=== PATIENT | male | born 1985 | race Caucasian/White ===

== ENCOUNTER 2016-08-19 19:51 | Emergency (ER) | payer OTHER ==
[~2016-08-19] VITALS: Ht 198.1 cm; Wt 134.0 kg
[2016-08-19 20:47] VITALS: Ht 198.1 cm; Wt 134.0 kg
[2016-08-19] MEDS ORDERED: BEN25 PO (21:20)
[2016-08-19] MEDS ORDERED: CLOT30CR24 TOP (21:20)
--- NOTE | 2016-08-19 21:35 | ERD ---
ER Documentation Chief Complaint Date/Time DATE: 08/19/16 TIME: 21:23 Chief Complaint Rash on the left arm HPI 30-year-old male presents to ER with chief complaint of rash over left elbow. States that he noticed it yesterday. He denies fever, discharge, bleeding, swelling, and trauma. He has not tried any OTC medications for relief of his rash. Denies use of any new household products including lotions, creams, along detergent, and soap. He is unaware of any allergies. Has not tried any new medications or foods. States the area is pruritic. ROS All systems reviewed and are negative except as per history of present illness. Medications Home Meds Active Scripts Diphenhydramine Hcl* (Benadryl*) 25 Mg Cap, 25 MG PO Q6, #30 CAP Prov:Fiordaliza Beltre PA-C 08/19/16 Clotrimazole* (Clotrimazole* AF) 1% - 30 Gm Cream.gm., 1 APPLIC TOP BID for 7 Days, TUB Prov:Fiordaliza Beltre PA-C 08/19/16 Allergies Allergies: Coded Allergies: No Known Allergy (Unverified , 05/16/14) Physical Exam Vitals Vital Signs Date Time Temp Pulse Resp B/P Pulse Ox O2 Delivery O2 Flow Rate FiO2 08/19/16 20:47 98.1 83 24 144/83 99 Physical Exam GENERAL: Non-toxic. No apparent signs of distress. HEENT: Atraumatic. Bilateral eyes are PERRL EOM intact. Normal conjunctiva, no injection. No eyelid or lower eyelid swelling noted. Ears: Normal tympanic membrane, no erythema or bulging. No ear canal swelling. No ear discharge. Nose : no nasal discharge. Throat: Oropharynx normal. Tongue pink and moist, no tongue swelling. No lip swelling. No tonsillar swelling or tonsillar exudates. No lymphadenopathy. No lesions over the buccal mucosa. LUNGS: Clear to auscultation. No accessory muscle use. No wheezing, no crackles. No signs or symptoms of respiratory distress. HEART: Regular rate and rhythm. No murmurs, clicks, rubs or gallops. EXTREMITIES: No peripheral cyanosis or edema. No focal pain or notable trauma. Full range of motion. Good capillary refill. SKIN: 3 cm annular area of surrounding erythematous papular lesions with central clearing. No diffuse erythema or edema. Area is cool to touch. Good skin turgor. Procedures/MDM Patient presents to ER with chief complaint of rash that he noticed yesterday. On examination the area is annular with papular erythematous lesion over the outside and clearing over the center. Patient states the area is pruritic. He denies any other similar lesions over his body. He denies fever, discharge, bleeding, and use of any new products. Differential diagnosis eczema versus tinea corporis. I explained to the patient that rash is most consistent with tinea corporis. I advised the area dry and out of contact with other areas of the body has been having seizures. I advised the use of tight clothing that may trap moisture. I prescribed Lotrimin 1% topical cream as well as Benadryl 25 mg for pruritus. Sedating effects of Benadryl worked the best, patient advised not take medication while driving or operating heavy machinery. At this time I low suspicion for anaphylaxis, cellulitis, SJS, erythema multiforme, abscess, and ulcer/gangrene. Patient is stable for discharge and outpatient management. Advised to follow-up with PCP in one to 2 days. Departure Diagnosis: Primary Impression: Rash Additional Impression: Tinea corporis Condition: Good Patient Instructions: Self-Care for Skin Rashes, Tinea Corporis Additional Instructions: Call your primary care doctor TOMORROW for an appointment during the next 1-2 days.See the doctor sooner or return here if your condition worsens before your appointment time. Fiordaliza Beltre PA-C Aug 19, 2016 21:35
== END 2016-08-19 21:23 | disposition home or self-care (01) ==
LOC: E/R 19:51
DX: R21 Rash and other nonspecific skin eruption (principal); B35.4 Tinea corporis
CPT/HCPCS: 99283

== ENCOUNTER 2016-10-16 01:09 | Emergency (ER) | payer OTHER ==
[~2016-10-16] VITALS: Ht 193 cm; Wt 138.0 kg
[~2016-10-16 01:09] MED LIST: BEN25 PO; CLOT30CR24 TOP
[2016-10-16 02:12] VITALS: Ht 193 cm; Wt 138.0 kg
--- NOTE | 2016-10-16 02:24 | ERA ---
ER Documentation Chief Complaint Date/Time DATE: 10/16/16 TIME: 02:23 Chief Complaint Anxious HPI The patient is a 31-year-old male, presenting to the ER because he is very anxious. He has been doing heroin, amphetamine, cocaine, marijuana for a week. He is homeless, denies suicidal or homicidal ideation. He has flights of ideas, talkative. He denies headache, neck pain, chest pain, abdominal pain, vomiting, dysuria, diarrhea. He smokes and drinks Past medical history: Schizoaffective disorder, alcohol abuse Past surgical history: Bariatric surgery ROS All systems reviewed and are negative except as per history of present illness. Medications Home Meds Active Scripts Diphenhydramine Hcl* (Benadryl*) 25 Mg Cap, 25 MG PO Q6, #30 CAP Prov:Fiordaliza Beltre PA-C 08/19/16 Clotrimazole* (Clotrimazole* AF) 1% - 30 Gm Cream.gm., 1 APPLIC TOP BID for 7 Days, TUB Prov:Fiordaliza Beltre PA-C 08/19/16 Allergies Allergies: Coded Allergies: No Known Allergy (Unverified , 05/16/14) Physical Exam Vitals Vital Signs Date Time Temp Pulse Resp B/P Pulse Ox O2 Delivery O2 Flow Rate FiO2 10/16/16 03:31 80 19 141/93 99 Room Air 10/16/16 02:12 98.4 105 24 135/85 95 Physical Exam Const: No acute distress. Head: Atraumatic. Eyes: Normal Conjunctiva. ENT: Normal External Ears, Nose and Mouth. Neck: Full range of motion. No meningismus. Resp: Clear to auscultation bilaterally. Cardio: Regular rate and rhythm, no murmurs. Abd: Soft, non distended, normal bowel sounds, non tender. Skin: No petechiae or rashes. Back: No midline or flank tenderness. Ext: No cyanosis, or edema. Neur: Awake and alert. No focal deficit Psych: Anxious Result Diagram: 10/16/1631110/16/16311 Results 24 hrs Laboratory Tests Test 10/16/16 03:12 White Blood Count 8.610^3/ul Red Blood Count 5.2810^6/ul Hemoglobin 15.5g/dl Hematocrit 46.6% Mean Corpuscular Volume 88.3fl Mean Corpuscular Hemoglobin 29.4pg Mean Corpuscular Hemoglobin Concent 33.3g/dl Red Cell Distribution Width 12.8% Platelet Count 69593^3/UL Mean Platelet Volume 9.2fl Neutrophils % 71.8% Lymphocytes % 18.3% Monocytes % 8.2% Eosinophils % 0.9% Basophils % 0.4% Nucleated Red Blood Cells % 0.0/100WBC Neutrophils # 6.210^3/ul Lymphocytes # 1.610^3/ul Monocytes # 0.710^3/ul Eosinophils # 0.110^3/ul Basophils # 0.010^3/ul Nucleated Red Blood Cells # 0.010^3/ul Urine Color LT. YELLOW Urine Clarity CLEAR Urine pH 6.0 Urine Specific Dat[place] 1.010 Urine Ketones NEGATIVE Urine Nitrite NEGATIVE Urine Bilirubin NEGATIVE Urine Urobilinogen 0.2 E.U./dL Urine Leukocyte Esterase NEGATIVE Urine Microscopic RBC 0-2/HPF Urine Microscopic WBC 0-2/HPF Urine Squamous Epithelial Cells OCCASIONAL Urine Hemoglobin TRACE Urine Glucose NEGATIVE% Urine Total Protein NEGATIVE Sodium Level 142mmol/L Potassium Level 4.3mmol/L Chloride Level 100mmol/L Carbon Dioxide Level 28mmol/L Anion Gap 18 Blood Urea Nitrogen 12mg/dl Creatinine 0.97mg/dl Glucose Level 85mg/dl Calcium Level 9.5mg/dl Total Bilirubin 0.5mg/dl Direct Bilirubin 0.00mg/dl Indirect Bilirubin 0.5mg/dl Aspartate Amino Transf (AST/SGOT) 31IU/L Alanine Aminotransferase (ALT/SGPT) 50IU/L Alkaline Phosphatase 71IU/L Total Protein 8.1g/dl Albumin 4.9g/dl Globulin 3.20g/dl Albumin/Globulin Ratio 1.53 Salicylates Level < 1.0mg/dl Urine Opiates Screen Negative Acetaminophen Level < 10.0ug/ml Urine Barbiturates Negative Urine Amphetamines Screen Negative Urine Benzodiazepines Screen Negative Urine Cocaine Screen Negative Urine Cannabinoids Positive Ethyl Alcohol Level < 10.0mg/dl Procedures/MDM MEDICAL MAKING DECISION: The patient is a 31-year-old male, presenting to the ER because of acute psychosis. The differential diagnoses considered include but are not limited to decompensated psychiatric illness, psychosis, drug- induced psychosis, substance abuse, anxiety attack, panic attack Departure Diagnosis: Primary Impression: Psychosis Additional Impression: Substance abuse Condition: Stable Comments He is awaiting for telepsychiatrist evaluation The patient's blood pressure was elevated (>120/80) but appears stable without evidence of hypertension emergency or urgency. The patient was counseled about the risks of hypertension and urged to pursue outpatient monitoring and therapy within a week after discharge with their primary care physician. SHREE MYERS MD Oct 16, 2016 02:23
[2016-10-16 03:31] VITALS: BP 141/93; PULSE 80; RESP 19
[2016-10-16 03:38] LABS: ADD SCAN DIFF NO
[2016-10-16 03:41] LABS: ADD UMIC YES; URINE BILIRUBIN (Dip) NEGATIVE (NEGATIVE); URINE BLOOD (Dip) TRACE (NEGATIVE); URINE COLOR LT. YELLOW (YELLOW); URINE GLUCOSE (Dip) NEGATIVE (NEGATIVE); URINE KETONES (Dip) NEGATIVE (NEGATIVE); URINE LEUKOCYTE ESTERASE (Dip) NEGATIVE (NEGATIVE); URINE NITRITE (Dip) NEGATIVE (NEGATIVE); URINE TOTAL PROTEIN (Dip) NEGATIVE (NEGATIVE); URINE UROBILINOGEN (Dip) 0.2 E.U./dL (0.1-1.0)
[2016-10-16 03:42] LABS: BASOPHILS % 0.4 % (0.0-2.0); EOSINOPHILS # 0.1 10^3/ul (0.0-0.5); EOSINOPHILS % 0.9 % (0.0-7.0); HEMATOCRIT 46.6 % (42.0-52.0); HEMOGLOBIN 15.5 g/dl (14.0-18.0); LYMPHOCYTES # 1.6 10^3/ul (0.8-2.9); LYMPHOCYTES % 18.3 % (15.0-51.0); MEAN CORPUSCULAR HEMOGLOBIN 29.4 pg (29.0-33.0); MEAN CORPUSCULAR HGB CONC 33.3 g/dl (32.0-37.0); MEAN CORPUSCULAR VOLUME 88.3 fl (82.0-101.0); MEAN PLATELET VOLUME 9.2 fl (7.4-10.4); MONOCYTE # 0.7 10^3/ul (0.3-0.9); MONOCYTES % 8.2 % (0.0-11.0); NEUTROPHIL # 6.2 10^3/ul (1.6-7.5); NEUTROPHILS % 71.8 % (39.0-77.0); PLATELET COUNT 349 10^3/UL (140-415); RED BLOOD COUNT 5.28 10^6/ul (4.70-6.10); RED CELL DISTRIBUTION WIDTH 12.8 % (11.5-14.5); WHITE BLOOD COUNT 8.6 10^3/ul (4.8-10.8)
[2016-10-16 03:53] LABS: SQUAMOUS EPITHELIAL CELL,UR OCCASIONAL; URINE RBCS 0-2 /HPF (0)
[2016-10-16 03:56] LABS: ALBUMIN 4.9 g/dl (3.3-4.9); CHLORIDE 100 mmol/L (97-110); SODIUM 142 mmol/L (135-144)
[2016-10-16 03:57] LABS: CANNABINOIDS Positive (NEGATIVE); POTASSIUM 4.3 mmol/L (3.5-5.1)
[2016-10-16 03:58] LABS: CREATININE 0.97 mg/dl (0.61-1.24)
[2016-10-16 03:59] LABS: ALANINE AMINOTRANSFERASE 50 IU/L (13-69); ALBUMIN/GLOBULIN RATIO 1.53; ALKALINE PHOSPHATASE 71 IU/L (42-121); ANION GAP 18 (8-16); ASPARTATE AMINO TRANSFERASE 31 IU/L (15-46); BLOOD UREA NITROGEN 12 mg/dl (7-20); CALCIUM 9.5 mg/dl (8.4-10.2); CARBON DIOXIDE 28 mmol/L (21-31); GLUCOSE 85 mg/dl (70-220); TOTAL PROTEIN 8.1 g/dl (6.1-8.1)
[2016-10-16 04:03] LABS: BARBITURATES Negative (NEGATIVE); BENZODIAZEPINES Negative (NEGATIVE); COCAINE Negative (NEGATIVE); OPIATES Negative (NEGATIVE)
[2016-10-16 04:04] LABS: ACETAMINOPHEN < 10.0 ug/ml (10.0-30.0); ETHANOL < 10.0 mg/dl; SALICYLATE < 1.0 mg/dl (5.0-30.0)
[2016-10-16 04:15] LABS: BILIRUBIN,INDIRECT 0.5 mg/dl (0-1.1); BILIRUBIN,TOTAL 0.5 mg/dl (0.2-1.3)
--- NOTE | 2016-10-16 07:53 | PSY ---
Date/Time of Note Date/Time of Note DATE: 10/16/16 TIME: 07:53 Psychiatric Subjective Eval Subjective Evaluation Patient location: emergency Chief Complaint: AP, Psych issue, pt anxious, taking haldol. Held for psych issue Medical history Problems Medical Problems: (1) Psychosis Status: Acute (2) Rash Status: Acute (3) Substance abuse Status: Acute (4) Tinea corporis Status: Acute Allergies: Coded Allergies: No Known Allergy (Unverified , 05/16/14) Psychiatric Objective Eval Mental Status Examination: Laboratory Results Laboratory Tests Test 10/16/16 03:12 White Blood Count 8.610^3/ul Red Blood Count 5.2810^6/ul Hemoglobin 15.5g/dl Hematocrit 46.6% Mean Corpuscular Volume 88.3fl Mean Corpuscular Hemoglobin 29.4pg Mean Corpuscular Hemoglobin Concent 33.3g/dl Red Cell Distribution Width 12.8% Platelet Count 02419^3/UL Mean Platelet Volume 9.2fl Neutrophils % 71.8% Lymphocytes % 18.3% Monocytes % 8.2% Eosinophils % 0.9% Basophils % 0.4% Nucleated Red Blood Cells % 0.0/100WBC Neutrophils # 6.210^3/ul Lymphocytes # 1.610^3/ul Monocytes # 0.710^3/ul Eosinophils # 0.110^3/ul Basophils # 0.010^3/ul Nucleated Red Blood Cells # 0.010^3/ul Urine Color LT. YELLOW Urine Clarity CLEAR Urine pH 6.0 Urine Specific [place] 1.010 Urine Ketones NEGATIVE Urine Nitrite NEGATIVE Urine Bilirubin NEGATIVE Urine Urobilinogen 0.2 E.U./dL Urine Leukocyte Esterase NEGATIVE Urine Microscopic RBC 0-2/HPF Urine Microscopic WBC 0-2/HPF Urine Squamous Epithelial Cells OCCASIONAL Urine Hemoglobin TRACE Urine Glucose NEGATIVE% Urine Total Protein NEGATIVE Sodium Level 142mmol/L Potassium Level 4.3mmol/L Chloride Level 100mmol/L Carbon Dioxide Level 28mmol/L Anion Gap 18 Blood Urea Nitrogen 12mg/dl Creatinine 0.97mg/dl Glucose Level 85mg/dl Calcium Level 9.5mg/dl Total Bilirubin 0.5mg/dl Direct Bilirubin 0.00mg/dl Indirect Bilirubin 0.5mg/dl Aspartate Amino Transf (AST/SGOT) 31IU/L Alanine Aminotransferase (ALT/SGPT) 50IU/L Alkaline Phosphatase 71IU/L Total Protein 8.1g/dl Albumin 4.9g/dl Globulin 3.20g/dl Albumin/Globulin Ratio 1.53 Salicylates Level < 1.0mg/dl Urine Opiates Screen Negative Acetaminophen Level < 10.0ug/ml Urine Barbiturates Negative Urine Amphetamines Screen Negative Urine Benzodiazepines Screen Negative Urine Cocaine Screen Negative Urine Cannabinoids Positive Ethyl Alcohol Level < 10.0mg/dl Assessment Additional comments: IDENTIFYING INFORMATION: 31 year old Male patient who is currently at the hospital and for whom psychiatric consultation was requested. SOURCES OF INFORMATION: the medical record; the nursing staff. CHIEF COMPLAINT: unable to obtain as this evaluation was not completed. HISTORY OF PRESENT ILLNESS: MARILIN Boyer reports that the patient presented with various complaints, reporting that he needs surgery but would not disclose what type of surgery that would be or what the indication would be. Admitted to using cocaine, meth, MJ recently. According to the emergency room physician's note the patient presented to the emergency room because he is very anxious. He reported using heroin, amphetamine, cocaine, marijuana for one week. He denied having suicidal or homicidal ideation. He appeared to be quite talkative on exam and to have flights of ideas. Is not on a hold. The patient left the emergency room prior to the completion of this evaluation against medical advice. Therefore the provider was not able to complete this psychiatric interview of the patient. PAST MEDICAL HISTORY: The patient left the emergency room prior to the completion of this evaluation against medical advice. Therefore the provider was not able to initiate and complete a psychiatric interview of the patient. CURRENT MEDICATIONS: per nursing staff- Haldol IM q month ALLERGIES TO MEDICATIONS: The patient left the emergency room prior to the completion of this evaluation against medical advice. Therefore the provider was not able to complete this psychiatric interview of the patient. LABORATORY TESTS: CBC WNL, CMP WNL, UDS + MJ, no alcohol detected FAMILY HISTORY: The patient left the emergency room prior to the completion of this evaluation against medical advice. Therefore the provider was not able to initiate and complete a psychiatric interview of the patient. SOCIAL HISTORY: The patient left the emergency room prior to the completion of this evaluation against medical advice. Therefore the provider was not able to initiate and complete a psychiatric interview of the patient. REVIEW OF SYSTEMS: The patient left the emergency room prior to the completion of this evaluation against medical advice. Therefore the provider was not able to initiate and complete a psychiatric interview of the patient. MENTAL STATUS EXAMINATION: The patient left the emergency room prior to the completion of this evaluation against medical advice. Therefore the provider was not able to initiate and complete a psychiatric interview of the patient. ASSESSMENT/PLAN: The patient left the emergency room prior to the completion of this evaluation against medical advice. Therefore the provider was not able to initiate and complete a psychiatric interview of the patient. The recommendations could not be made because the current provider was never able to evaluate the patient. Will remain available if the patient returns back to the emergency room, and psychiatric consultation is requested by the emergency room physician. DIVINA FITZGERALD MD Oct 16, 2016 07:53
== END 2016-10-16 06:05 | disposition left against medical advice (07) ==
LOC: E/R 01:09
DX: F29 Unspecified psychosis not due to a substance or known physiological condition (principal); F11.10 Opioid abuse, uncomplicated; F15.10 Other stimulant abuse, uncomplicated; F14.10 Cocaine abuse, uncomplicated; F12.10 Cannabis abuse, uncomplicated
CPT/HCPCS: 36415; 80053; 80306; 80307; 81001; 81003; 85025; Z7502; 99284

== ENCOUNTER 2016-12-25 23:38 | Emergency (ER) | payer OTHER ==
[~2016-12-25] VITALS: Ht 198.1 cm; Wt 130.5 kg
[2016-12-25 23:53] VITALS: Ht 198.1 cm; Wt 130.5 kg
[2016-12-26] MEDS ORDERED: IPRATROPIUM (NEB) 0.5 MG/2.5 ML AMP NEB STA (04:32)
[2016-12-26] MEDS ORDERED: predniSONE 20 MG TAB PO STA (04:32)
[2016-12-26] MEDS ORDERED: ALBUTEROL 0.5% (NEB) 2.5 MG/0.5 ML AMP NEB STA (04:32)
[2016-12-26] MEDS ORDERED: GUAIFENESIN/DM 5ML CUP PO ONE (05:00)
--- NOTE | 2016-12-26 05:09 | ERD ---
ER Documentation Chief Complaint Date/Time DATE: 12/26/16 TIME: 05:07 Chief Complaint CHEST CONGESTION X 2 DAYS HPI This is a 31-year-old male who presents to the emergency room for evaluation of chest congestion, wheezing and a cough for the past 2 days. The patient does state that his cough is productive of green phlegm. The patient does state that he smokes cigarettes. Denies any recent travel, night sweats or weight loss and came to the ER for evaluation ROS All systems reviewed and are negative except as per history of present illness. Medications Home Meds Active Scripts Diphenhydramine Hcl* (Benadryl*) 25 Mg Cap, 25 MG PO Q6, #30 CAP Prov:Fiordaliza Beltre PA-C 08/19/16 Clotrimazole* (Clotrimazole* AF) 1% - 30 Gm Cream.gm., 1 APPLIC TOP BID for 7 Days, TUB Prov:Fiordaliza Beltre PA-C 08/19/16 Allergies Allergies: Coded Allergies: No Known Allergy (Unverified , 05/16/14) PMhx/Soc History of Surgery: Yes (LAP BAND SX, TONSILLECTOMY) Anesthesia Reaction: No Hx Neurological Disorder: No Hx Respiratory Disorders: Yes (L "lung nodule") Hx Cardiac Disorders: No Hx Alcohol Use: Yes (2x/ month) Hx Substance Use: Yes (COCCAINE 1 yrago, METH 2wks ago, MARIJUANA today) Hx Tobacco Use: Yes Smoking Status: Former smoker Physical Exam Vitals Vital Signs Date Time Temp Pulse Resp B/P Pulse Ox O2 Delivery O2 Flow Rate FiO2 12/26/16 05:02 86 18 98 21 12/25/16 23:53 98.0 90 18 139/85 96 Physical Exam INITIAL VITAL SIGNS: Reviewed by me GENERAL: The patient is well developed and appropriate for usual state of health in no apparent distress HEENT: Pupils equal, round, and reactive to light. EOMI. There is no scleral icterus. NECK: C-spine is soft and supple, there is no meningismus. There is no cervical lymphadenopathy. LUNGS: Wheezing bilaterally HEART: Regular rate and rhythm, no murmurs, clicks, rubs or gallops. ABDOMEN: Soft, non-tender, non-distended. There are bowel sounds in all four quadrants. No rebound or guarding. EXTREMITIES: There is no peripheral cyanosis or edema. No focal swelling or erythema. NEUROLOGICAL: The patient moves all four extremities with 5/5 strength. Cranial nerves II - XII are intact. Normal gait. Alert and oriented SKIN: There is no apparent rash or petechiae. HEME/LYMPHATIC: There is no evidence of excessive bruising or lymphedema. PSYCHIATRIC: The patient does not appear anxious or depressed. Results 24 hrs Current Medications Medications (Trade) Dose Ordered Sig/Driss Route PRN Reason Start Time Stop Time Status Last Admin Dose Admin Albuterol (Proventil 0.5% (Neb)) 10 mg ONCE STAT NEB 12/26/16 04:32 12/26/16 04:33 DC 12/26/16 04:58 Ipratropium [place] (Atrovent 0.02% (Neb)) 0.5 mg ONCE STAT NEB 12/26/16 04:32 12/26/16 04:33 DC 12/26/16 04:59 Prednisone (Prednisone) 60 mg ONCE STAT PO 12/26/16 04:32 12/26/16 04:33 DC 12/26/16 04:43 Guaifenesin/ Dextromethorphan (Robitussin Dm Liquid Cup) 10 ml ONCE ONCE PO 12/26/16 05:00 12/26/16 05:01 DC 12/26/16 04:53 Procedures/MDM This 31-year-old male presents to the ER for evaluation of chest congestion, cough and wheezing. When I evaluated this patient he did have a wheezing bilaterally. He was afebrile, and nontoxic appearing. The patient was given a breathing treatment with albuterol, and Atrovent. He was also given prednisone and Robitussin by mouth. Upon my reevaluation the patient states she is feeling better at this time. I do feel the patient is likely suffering from bronchitis and given the fact that he is a smoker the patient will be discharged home at this time with a prescription for Provera, and azithromycin for acute bronchitis. The patient was counseled on tobacco abuse and smoking cessation. Smoking Cessation Therapy: Pt. was lectured for greater than 3 minutes on the health risks of continued smoking and the benefits of cessation. Departure Diagnosis: Primary Impression: Acute bronchitis Additional Impression: Tobacco abuse Condition: Stable CARRIE AMOS DO Dec 26, 2016 05:09
[2016-12-26] MEDS ORDERED: ALBU8.5H3 INH (05:10)
[2016-12-26] MEDS ORDERED: UDROBDM PO (05:10)
[2016-12-26] MEDS ORDERED: AZIT250T94 PO (05:10)
== END 2016-12-26 05:40 | disposition home or self-care (01) ==
LOC: FTE 23:38
DX: J20.9 Acute bronchitis, unspecified (principal); F17.210 Nicotine dependence, cigarettes, uncomplicated
CPT/HCPCS: 94664; J7512; Z7502; Z7610

== ENCOUNTER 2016-12-30 16:23 | Emergency (ER) | payer OTHER ==
[~2016-12-30] VITALS: Ht 198.1 cm; Wt 120.0 kg
[~2016-12-30 16:23] MED LIST changes: +ALBU8.5H3 INH; +AZIT250T94 PO; +UDROBDM PO
[2016-12-30 16:32] VITALS: Ht 198.1 cm; Wt 120.0 kg
--- NOTE | 2016-12-30 19:37 | ERD ---
ER Documentation Chief Complaint Date/Time DATE: 12/30/16 TIME: 19:35 Chief Complaint "RECHECK BRONCHITIS" PER PT HPI This patient is a 31-year-old male presenting to the emergency department for repeat evaluation after being diagnosed with bronchitis approximately 5 days ago. Additionally he states he would like paperwork filled out so that he may donate plasma. He states he is feeling much improved from his bronchitis symptoms. He denies any wheezing, fevers, chills, shortness of breath, chest pain, or other symptoms currently. ROS All systems reviewed and are negative except as per history of present illness. Medications Home Meds Active Scripts Azithromycin* (Zithromax*) 250 Mg Tablet, 250 MG PO .ZPACK DIRECTED, #6 TAB TAKE 500 MG (2 TABS) THE FIRST DAY THEN 250 MG (1 TAB) DAYS 2-5 Prov:CARRIE AMOS DO 12/26/16 Albuterol Sulfate* (Proair HFA*) 8.5 Gm Hfa.aer.ad, 2 PUFF INH Q4H Y for WHEEZING AND SOB, #1 INHALER Prov:CARRIE AMOS DO 12/26/16 Guaifenesin-Dextromethorphan* (Robitussin* DM) 100MG/10MG/5ML Syrup, 10 ML PO Q4H Y for COUGH for 7 Days, ML Prov:CARRIE AMOS DO 12/26/16 Diphenhydramine Hcl* (Benadryl*) 25 Mg Cap, 25 MG PO Q6, #30 CAP Prov:Fiordaliza Beltre PA-C 08/19/16 Clotrimazole* (Clotrimazole* AF) 1% - 30 Gm Cream.gm., 1 APPLIC TOP BID for 7 Days, TUB Prov:Fiordaliza Beltre PA-C 08/19/16 Allergies Allergies: Coded Allergies: No Known Allergy (Unverified , 05/16/14) PMhx/Soc History of Surgery: Yes (LAP BAND SX, TONSILLECTOMY) Anesthesia Reaction: No Hx Neurological Disorder: No Hx Respiratory Disorders: Yes (L "lung nodule") Hx Cardiac Disorders: No Hx Alcohol Use: Yes (2x/ month) Hx Substance Use: Yes (COCCAINE 1 yrago, METH 2wks ago, MARIJUANA today) Hx Tobacco Use: Yes Physical Exam Vitals Vital Signs Date Time Temp Pulse Resp B/P Pulse Ox O2 Delivery O2 Flow Rate FiO2 12/30/16 16:32 98.6 86 20 139/86 99 Physical Exam Const: Nontoxic, well-appearing male in no acute distress. Head: Atraumatic Eyes: Normal Conjunctiva ENT: Normal External Ears, Nose and Mouth. Neck: Full range of motion..~ No meningismus. Resp: Clear to auscultation bilaterally. No crackles, no wheezing, no signs of respiratory distress. Cardio: Regular rate and rhythm, no murmurs Abd: Soft, non tender, non distended. Normal bowel sounds Skin: No petechiae or rashes Back: No midline or flank tenderness Ext: No cyanosis, or edema Neur: Awake and alert Psych: Normal Mood and Affect Procedures/MDM 31-year-old male presenting to the emergency department for repeat evaluation after being diagnosed with bronchitis 5 days ago. The patient states he is feeling much better and his pulmonary examination is benign. I believe he is much improved since his last visit. The patient is also requesting paperwork to be filled out to donate plasma. I spoke with the patient and told him this is not an emergent situation and that he may have this filled out by his primary care physician. According to the paperwork that he brought in, multiple tests were required and I advised him that these tests should not be ordered from the emergency department, considering that his wishes to donate plasma is not an emergent or life-threatening condition. The patient agreed and understood. He was given a list of community clinics locally that he may find to have the paperwork filled out. The patient had no life-threatening conditions identified upon discharge. Departure Diagnosis: Primary Impression: Follow-up examination Condition: Fair Patient Instructions: Self Blood Donation Referrals: COMMUNITY CLINICS YOU HAVE RECEIVED A MEDICAL SCREENING EXAM AND THE RESULTS INDICATE THAT YOU DO NOT HAVE A CONDITION THAT REQUIRES URGENT TREATMENT IN THE EMERGENCY DEPARTMENT. FURTHER EVALUATION AND TREATMENT OF YOUR CONDITION CAN WAIT UNTIL YOU ARE SEEN IN YOUR DOCTORS OFFICE WITHIN THE NEXT 1-2 DAYS. IT IS YOUR RESPONSIBILITY TO MAKE AN APPOINTMENT FOR FOLOW-UP CARE. IF YOU HAVE A PRIMARY DOCTOR --you should call your primary doctor and schedule an appointment IF YOU DO NOT HAVE A PRIMARY DOCTOR YOU CAN CALL OUR PHYSICIAN REFERRAL HOTLINE AT IF YOU CAN NOT AFFORD TO SEE A PHYSICIAN YOU CAN CHOSE FROM THE FOLLOWING COMMUNITY CLINICS [facility] [address] [facility] [address] [facility] [address] [facility] [address] [facility] [address] [facility]. [facility] [address] [place] Additional Instructions: Follow up with your PCP within the next 1-3 days for a repeat evaluation and a possible referral to a specialist, if required. Return the the emergency department immediately if symptoms worsen or change. If you have any questions regarding medications, ask your pharmacist or us before you leave. If any adverse reactions, occur while taking your medications, discontinue the treatment and return to the emergency department immediately. If any new or worsening symptoms, uncontrolled fevers, or other unexplained symptoms occur, return to the emergency department immediately. Take your medications as directed, and complete the entire course of treatment. OSKAR TALLEY PA-C Dec 30, 2016 19:37
== END 2016-12-30 16:47 | disposition home or self-care (01) ==
LOC: E/R 16:23
DX: Z09 Encounter for follow-up examination after completed treatment for conditions other than malignant neoplasm (principal)
CPT/HCPCS: 99282